=== PATIENT | female | born 1970 | race Caucasian/White ===

== ENCOUNTER → 2016-10-04 | Outpatient (CLI) | payer BC ==
[~2016-10-04] MED LIST: AMBIEN 5MG TABLE5 MG; BENADRYL25 MG PO; CALCIUM CARBON500 M1 PO; CONTRAVE1 TER PO; CULTURELLE10 Billion PO; DENAVIR1% TOP; DESYREL 100MG100 MG PO; FLEXERIL 1010 MG/TAB PO; FLONASEALLERGY NS; FOLIC ACID; GAS-X80 MG PO; LEXAPRO20 MG PO; LINZESS290CAP PO; LOTRIMIN1% TP; MAGCITRATE PO; MIRALAX PA17 GM/Dose PO; MOTRIN 800800 MG/TAB PO; NORCO 325 MG-51 TAB PO; PHENTERMINE15 MG; PRENATAL VITAMI1 TA5 PO; PROTONIX 40MG T40 MG PO; TYLENOL 500MG500 MG PO; VALTREX1 GM PO; WELLBUTRIN SR150 M1 PO; ZYRTEC 10MG10 MG PO
== END ==
LOC: MC.RAD 11:39
DX: Z12.31 Encounter for screening mammogram for malignant neoplasm of breast (principal)

== ENCOUNTER → 2017-11-17 | Outpatient (CLI) | payer BC | LOC: MC.RAD 10-10 10:00 | DX: Z12.31 Encounter for screening mammogram for malignant neoplasm of breast (principal) ==

== ENCOUNTER → 2018-12-14 | Outpatient (CLI) | payer BC | LOC: MC.RAD 14:44 | DX: Z12.31 Encounter for screening mammogram for malignant neoplasm of breast (principal) ==

== ENCOUNTER 2019-03-05 08:00 | Outpatient (RCR) | payer BC | END 2019-04-27 | disposition home or self-care (01) | LOC: MKS.ESL.PT | DX: M48.02 Spinal stenosis, cervical region (principal) ==

== ENCOUNTER 2020-06-14 15:31 | Outpatient (RCR) | payer BC | END 2020-09-12 | disposition still patient (30) | LOC: MKS.ESL.PT | DX: M54.5 Low back pain (principal); G89.29 Other chronic pain ==

== ENCOUNTER 2021-06-08 12:20 | Emergency (ER) | payer BC ==
[~2021-06-08] VITALS: Ht 162.6 cm; Wt 104.5 kg
[2021-06-08 12:34] VITALS: TEMP 97.5
[2021-06-08] MEDS ORDERED: WELLBUTRIN SR150 M1 PO (12:53)
[2021-06-08 13:26] LABS: BASO % 0.6 % (0.0-2.0); EOS # 0.1 K/mm3 (0.0-0.7); EOS % 2.6 % (0.0-4.0); GRAN % 60.1 % (42.2-75.2); HEMATOCRIT 41.6 % (37.0-47.0); HEMOGLOBIN 14.5 g/dl (12.5-16.0); LYMPH # 1.6 K/mm3 (1.2-3.4); LYMPH % 31.4 % (20.0-51.0); MEAN CELL VOLUME 87 fl (80.0-100.0); MEAN CORPUSCULAR HEMOGLOBIN 30 pg (27-31); MEAN CORPUSCULAR HGB CONC 35 g/dl (33.0-37.0); MEAN PLATELET VOLUME 10.5 fl (7.4-10.4); MONO # 0.3 K/mm3 (0.1-0.6); MONO % 4.9 % (1.7-9.3); PLATELET COUNT 220 K/mm3 (130-400); RED BLOOD COUNT 4.77 M/mm3 (4.10-5.30); REDCELL DISTRIBUTION WIDTH-CV 12.1 % (11.5-14.5)
[2021-06-08 13:36] LABS: ALANINE AMINOTRANSFERASE 30 U/L (0-55); ALBUMIN 4.2 gm/dL (3.5-5.0); ALKALINE PHOSPHATASE 76 U/L (40-150); ANION GAP 8 mmol/L (7-16); AST,SGOT 18 U/L (5-34); BILIRUBIN,TOTAL 0.4 mg/dL (0.2-1.2); BLOOD UREA NITROGEN 6 mg/dL (7-19); CALCIUM 8.9 mg/dL (8.4-10.2); CARBON DIOXIDE 25 mmol/L (22-29); CHLORIDE 106 mmol/L (98-107); CREATININE, serum 0.77 mg/dL (0.57-1.11); GLUCOSE 117 mg/dL (70-99); POTASSIUM 3.6 mmol/L (3.5-4.5); SODIUM 139 mmol/L (136-145)
[2021-06-08 13:42] LABS: TROPONIN-I < 0.010 ng/mL (0.00-0.033)
[2021-06-08 16:17] VITALS: BP 138/89; PULSE 69
== END 2021-06-08 16:23 | disposition home or self-care (01) ==
LOC: COL.ER 12:20
PROVIDERS: Personal Emergency Response Attendant
DX: R07.9 Chest pain, unspecified (principal); F32.A Depression, unspecified; Z79.899 Other long term (current) drug therapy
CPT/HCPCS: J2270; J2405

== ENCOUNTER 2021-12-19 11:55 | Emergency (ER) | payer BC ==
[~2021-12-19] VITALS: Ht 162.6 cm; Wt 100.5 kg
[2021-12-19 12:09] VITALS: TEMP 98.3
[2021-12-19] MEDS ORDERED: MULTI VITAMINS1 TAB PO (12:25)
[2021-12-19] MEDS ORDERED: CLARITIN 1010 MG/TAB PO (12:25)
[2021-12-19] MEDS ORDERED: HAIRSKINNAILS PO (12:25)
[2021-12-19] MEDS ORDERED: BENADRYL50 MG PO (12:25)
[2021-12-19] MEDS ORDERED: NASONEX SPRAY17 GM NS (12:26)
[2021-12-19] MEDS ORDERED: SAXENDA6 MG/ML SQ (12:26)
[2021-12-19 12:54] LABS: BASO % 0.5 % (0.0-2.0); EOS # 0.1 K/mm3 (0.0-0.7); EOS % 3.5 % (0.0-4.0); GRAN # 2.2 K/mm3 (1.4-6.5); GRAN % 54.9 % (42.2-75.2); HEMOGLOBIN 15.4 g/dl (12.5-16.0); LYMPH # 1.4 K/mm3 (1.2-3.4); LYMPH % 33.7 % (20.0-51.0); MEAN CELL VOLUME 88 fl (80.0-100.0); MEAN CORPUSCULAR HEMOGLOBIN 30 pg (27-31); MEAN CORPUSCULAR HGB CONC 34 g/dl (33.0-37.0); MONO # 0.3 K/mm3 (0.1-0.6); MONO % 7.2 % (1.7-9.3); PLATELET COUNT 230 K/mm3 (130-400); RED BLOOD COUNT 5.13 M/mm3 (4.10-5.30); REDCELL DISTRIBUTION WIDTH-CV 12.1 % (11.5-14.5)
[2021-12-19 13:10] LABS: ALBUMIN 3.3 gm/dL (3.5-5.0); BILIRUBIN,TOTAL 0.5 mg/dL (0.2-1.2); CALCIUM 8.7 mg/dL (8.4-10.2); CREATININE, serum 0.65 mg/dL (0.57-1.11); POTASSIUM 3.7 mmol/L (3.5-4.5); TOTAL PROTEIN 5.7 gm/dL (6.2-8.1)
[2021-12-19 13:44] LABS: ERYTHROCYTE SEDIMENTATION RATE 1 mm/hr (0-20)
[2021-12-19 14:15] VITALS: BP 130/98; PULSE 86
== END 2021-12-19 14:47 | disposition home or self-care (01) ==
LOC: COL.ER 11:55
PROVIDERS: Physician Assistant
DX: R51.9 Headache, unspecified (principal); Z20.822 Contact with and (suspected) exposure to COVID-19
CPT/HCPCS: J1885; J2765; J7030